=== PATIENT | female | born 1945 | race Caucasian/White ===

== ENCOUNTER 2022-10-23 08:00 | Outpatient (RCR) | payer MEDICARE, OTHER, SELFPAY ==
--- NOTE | 2022-07-25 15:15 | PT.OIE ---
Current Diagnoses Overactive bladder (07/25/22) Visit Care Team Role Provider Type L Raisa Harding MD Attending Provider Non-Staff Family Provider Referring Provider Specialty: Family Practice Address: [address] [place] [address], [id number] Email: Physical Therapy Initial Evaluation PT-OP-A Visit Information Start: 07/25/22 09:00 Freq: Status: Active Protocol: Document 07/25/22 09:01 [facility] (Rec: 07/25/22 09:51 [facility] [id number]) Out-Patient Physical Therapy Visit Information Visit Information Visit Type Initial Evaluation Visit Start Time 09:02 Visit Stop Time 09:45 Total Visit Minutes 43 Visit Number 1 Evaluation Information Evaluation Date 07/25/22 PT-OP-B Current Condition Start: 07/25/22 09:00 Freq: Status: Active Protocol: Document 07/25/22 09:01 [facility] (Rec: 07/25/22 09:51 [facility] [id number]) Current Condition History of Current Condition Onset Date chronic but worsening in the last few years Current Complaints urinary incontinence, urgency, bowel movement urgency, hemorrhoids History of Current Condition hx of surgery for her bladder 40 years ago that helped her pressure and then years later she started feeling symptms of rectal prolapse. She is now on HRT and has been working on kegels but at this point its not helping. Now she has to wear 2 pads and feels that she cant sit through a buddhism service or graduation with out havign to get up to void. When she stands she notes leakage. She has to stop her walk at 15 minutes to go to the bathroom and have a bowelmovement. If the bowels are full she will leak. She is up at 5:30 and she walks right away. She has GERD so she doesn't drink all night, she doesn't drink until after 6 at night SHe has a history of hemmrhoids. Treatment Goals Patient/Caregiver Goals Pt goals include improving pelvic floor strength and reducing symptoms or urinary urgency and frequency as well as improving continence PT-OP-C Subjective Start: 07/25/22 09:00 Freq: Status: Active Protocol: Document 07/25/22 15:05 [facility] (Rec: 07/25/22 15:05 [facility] [id number]) Patient Questionnaires Pelvic Pain and Urgency/Frequency Patient Symptom Scale Pelvic Pain Score 11 PT-OP-I Pelvic Floor Start: 07/25/22 09:00 Freq: Status: Active Protocol: Document 07/25/22 11:08 [facility] (Rec: 07/25/22 11:08 [facility] [id number]) Pelvic Floor Assessment Pelvic Clock Pelvic Clock 12-3 Atrophy Pelvic Clock 3-6 Atrophy Pelvic Clock 6-9 Atrophy Pelvic Clock 9-12 Atrophy Contraction Ability Voluntary Contraction Weak Voluntary Relaxation Weak Manual Muscle Testing Left 2 Manual Muscle Testing Right 2 Manual Muscle Testing Anterior 1 Manual Muscle Testing Posterior 2 Muscle Endurance (Seconds) 3 PT-OP-Q Treatments Start: 07/25/22 09:00 Freq: Status: Active Protocol: Document 07/25/22 11:07 [facility] (Rec: 07/25/22 11:08 [facility] [id number]) Therapeutic Exercises Supine Exercises supine ball squeeze with pelvic floor facilitation Reps/Minutes 10 reps holding 5-10 seconds and resting 10 seconds Comments use ball to help facilitate the anterior pelvic floor PT-OP-T Assessment and Plan Start: 07/25/22 09:00 Freq: Status: Active Protocol: Document 07/25/22 11:08 [facility] (Rec: 07/25/22 11:27 [facility] [id number]) Physical Therapy Assessment Rehab Potential Rehabilitation Potential Excellent Evaluation Complexity Number of Personal Factors/Comorbidities 0 Number of Body Systems Impaired 1-2 Clinical Presentation at Evaluation Stable Impairments Impairments Activity Tolerance,Soft Tissue Mobility,Strength,Tone Other Impairments urinary incontinence both stress and urge Goals 3 Impairment Decreased strength of the pelvic floor specifically the anterior portion of the levator ani with grade 1/5 MMT for the anteior portion of the pelvic floor and 2/5 for all other duffy of the levator ani [employer] Sales Representative Goal (LTG) Pita is able to improve strength of the levator ani by 1 muscle grade or better for improved bladder support LTG Duration 12 weeks 2 Impairment urinary urge and stress incontinence happening 6-10 times per day leaking through Pita's clothing [employer] Sales Representative Goal (LTG) Pita reports a overall reduction of urinary leakage and she is able to reduce the number of leaks from 6-10 per day to 2 or less LTG Duration 12 weeks 1 Impairment decreased endurance of the pelvic floor, pt has limited ability to sustain a pelvic floor contraction for more than a few seconds Short Term Goal (STG) Pita is able to sustain a pelvic floor contraction for 10 seconds in supine STG Duration 5 weeks [employer] Representative Goal (LTG) Pita is able to sustain a pelvic floor contraction for 5 -10 seconds in standing LTG Duration 12 weeks Assessment Summary Assessment Pita is a 77 year old female with symptoms of worsening urinary incontinence 6-10 times per day that often is severe enough she will leak through her clothing. Pita reports she wears maxipads doubled and leaks with both activity as well as strong urge to void. She ofter voids just in case and finds herself voiding frequently throughout the day. She denies nocturia. Pita also reports bowel urgency and notes she will leak if she does not empty her bowels soon enough. Pt notes she stops drinking at 6 oclock at night due to Gerds and finds she is dehydrated upon waking. Patient was given a bladder diary today to begin recording her voiding schedule as well as her fluid intake. She does drink a frappachino as she is walking and this may be contributing to her symptoms. With exam today Pita is weak throughtout her pelvic floor expecially the anterior pelvic floor. She lacks the ability to sustain a pelvic floor contraction and also is unaware when she is lupe her pelvic floor. She will be a good candidate for EMG biofeedback for neuro re-education of the pelvic floor Physical Therapy Plan Frequency and Duration Frequency of Treatment 1x/Week Duration of treatment (weeks) 12 Plan of Care Start Date 07/25/22 Plan of Care End Date 10/10/22 Therapeutic Interventions Therapeutic Interventions Home Exercise Program, Neuromuscular Re-education, Patient/Caregiver Education, Self-Care/Home Management, Therapeutic Exercises Modalities Biofeedback Next Visit Focus/Plan Next Note Type Treatment Note Next Visit Plan Begin EMG biofeedback for endurance training of the pelvic floor
--- NOTE | 2022-07-25 15:15 | PT.OPPOC ---
Physical, Occupational & Speech Therapy At [facility] Current Diagnoses Overactive bladder (07/25/22) Visit Care Team Role Provider Type L Raisa Harding MD Attending Provider Non-Staff Family Provider Referring Provider Specialty: Family Practice Address: [address] [place] [address], [id number] Email: Plan Of Care PT-OP-T Assessment and Plan Start: 07/25/22 09:00 Freq: Status: Active Protocol: Document 07/25/22 11:08 [facility] (Rec: 07/25/22 11:27 [facility] [id number]) Physical Therapy Assessment Rehab Potential Rehabilitation Potential Excellent Evaluation Complexity Number of Personal Factors/Comorbidities 0 Number of Body Systems Impaired 1-2 Clinical Presentation at Evaluation Stable Impairments Impairments Activity Tolerance,Soft Tissue Mobility,Strength,Tone Other Impairments urinary incontinence both stress and urge Goals 3 Impairment Decreased strength of the pelvic floor specifically the anterior portion of the levator ani with grade 1/5 MMT for the anterior portion of the pelvic floor and 2/5 for all other duffy of the levator ani Half-Way Goal (LTG) Pita is able to improve strength of the levator ani by 1 muscle grade or better for improved bladder support LTG Duration 12 weeks 2 Impairment urinary urge and stress incontinence happening 6-10 times per day leaking through Pita's clothing Half-Way Goal (LTG) Pita reports a overall reduction of urinary leakage and she is able to reduce the number of leaks from 6-10 per day to 2 or less LTG Duration 12 weeks 1 Impairment decreased endurance of the pelvic floor, pt has limited ability to sustain a pelvic floor contraction for more than a few seconds Short Term Goal (STG) Pita is able to sustain a pelvic floor contraction for 10 seconds in supine STG Duration 5 weeks Half-Way Goal (LTG) Pita is able to sustain a pelvic floor contraction for 5 -10 seconds in standing LTG Duration 12 weeks Assessment Summary Assessment Pita is a 77 year old female with symptoms of worsening urinary incontinence 6-10 times per day that often is severe enough she will leak through her clothing. Pita reports she wears maxipads doubled and leaks with both activity as well as strong urge to void. She often voids just in case and finds herself voiding frequently throughout the day. She denies nocturia. Pita also reports bowel urgency and notes she will leak if she does not empty her bowels soon enough. Pt notes she stops drinking at 6 o'clock at night due to Gerds and finds she is dehydrated upon waking. Patient was given a bladder diary today to begin recording her voiding schedule as well as her fluid intake. She does drink a frappachino as she is walking and this may be contributing to her symptoms. With exam today Ptia is weak throughout her pelvic floor especially the anterior pelvic floor. She lacks the ability to sustain a pelvic floor contraction and also is unaware when she is lupe her pelvic floor. She will be a good candidate for EMG biofeedback for neuro re-education of the pelvic floor Physical Therapy Plan Frequency and Duration Frequency of Treatment 1x/Week Duration of treatment (weeks) 12 Plan of Care Start Date 07/25/22 Plan of Care End Date 10/10/22 Therapeutic Interventions Therapeutic Interventions Home Exercise Program, Neuromuscular Re-education, Patient/Caregiver Education, Self-Care/Home Management, Therapeutic Exercises Modalities Biofeedback Next Visit Focus/Plan Next Note Type Treatment Note Next Visit Plan Begin EMG biofeedback for endurance training of the pelvic floor Plan of Care Dates Plan of Care Start Date 07/25/22 Plan of Care End Date 10/10/22 Electronically Signed by: Amanda Aguilera, PT 07/25/22 [id number] If you are in agreement with this Plan of Care, please return a signed and dated copy. I have reviewed this Plan of Care and certify that the skilled therapy services above are required to meet the patient?s needs. Physician Signature Date Printed Name and Credentials Clinical Instructor Signature Printed Name and Credentials
--- NOTE | 2022-08-08 09:41 | PT.OTN ---
Current Diagnoses Overactive bladder (08/08/22) Physical Therapy Treatment Note PT-OP-A Visit Information Start: 07/25/22 09:00 Freq: Status: Active Protocol: Document 08/08/22 08:59 [facility] (Rec: 08/08/22 09:41 [facility] [id number]) Out-Patient Physical Therapy Visit Information Visit Information Visit Type Treatment Note Visit Start Time 09:00 Visit Stop Time 09:45 Total Visit Minutes 45 Visit Number 2 PT-OP-B Current Condition Start: 07/25/22 09:00 Freq: Status: Active Protocol: Document 07/25/22 09:01 [facility] (Rec: 07/25/22 09:51 [facility] [id number]) Current Condition History of Current Condition Onset Date chronic but worsening in the last few years Current Complaints urinary incontinence, urgency, bowel movement urgency, hemorrhoids History of Current Condition hx of surgery for her bladder 40 years ago that helped her pressure and then years later she started feeling symptms of rectal prolapse. She is now on HRT and has been working on kegels but at this point its not helping. Now she has to wear 2 pads and feels that she cant sit through a [employer] service or graduation with out havign to get up to void. When she stands she notes leakage. She has to stop her walk at 15 minutes to go to the bathroom and have a bowelmovement. If the bowels are full she will leak. She is up at 5:30 and she walks right away. She has GERD so she doesn't drink all night, she doesn't drink until after 6 at night SHe has a history of hemmrhoids. Treatment Goals Patient/Caregiver Goals Pt goals include improving pelvic floor strength and reducing symptoms or urinary urgency and frequency as well as improving continence PT-OP-C Subjective Start: 07/25/22 09:00 Freq: Status: Active Protocol: Document 08/08/22 08:59 [facility] (Rec: 08/08/22 09:41 [facility] [id number]) OP-PT Subjective Patient Comments Patient Comments pt notes the urge technique has helped for both her bowels as well as her urine PT-OP-I Pelvic Floor Start: 07/25/22 09:00 Freq: Status: Active Protocol: Document 07/25/22 11:08 [facility] (Rec: 07/25/22 11:08 [facility] [id number]) Pelvic Floor Assessment Pelvic Clock Pelvic Clock 12-3 Atrophy Pelvic Clock 3-6 Atrophy Pelvic Clock 6-9 Atrophy Pelvic Clock 9-12 Atrophy Contraction Ability Voluntary Contraction Weak Voluntary Relaxation Weak Manual Muscle Testing Left 2 Manual Muscle Testing Right 2 Manual Muscle Testing Anterior 1 Manual Muscle Testing Posterior 2 Muscle Endurance (Seconds) 3 PT-OP-Q Treatments Start: 07/25/22 09:00 Freq: Status: Active Protocol: Document 08/08/22 08:59 [facility] (Rec: 08/08/22 09:41 [facility] [id number]) Therapeutic Exercises Supine Exercises quick pelvic floor contractions Reps/Minutes x 10 reps Comments 5.4 average and max of 9.0 uv supine pelvic floor isolations Reps/Minutes x 10 reps Comments 5.7 average max of 14.4 supine ball squeeze with pelvic floor facilitation Reps/Minutes 10 reps Comments with EMG biofeedback Self-Care/Home Management Treatment Education Patient Education Home Exercise Program Other Education review of bladder diary and bladder irritants, review of urge deference technique PT-OP-T Assessment and Plan Start: 07/25/22 09:00 Freq: Status: Active Protocol: Document 08/08/22 08:59 [facility] (Rec: 08/08/22 09:41 [facility] [id number]) Physical Therapy Assessment Assessment Summary Assessment Pita was able to isolate her pelvic floor better today and did well with the addition of EMG biofeedback Physical Therapy Plan Frequency and Duration Frequency of Treatment 1x/Week Duration of treatment (weeks) 12 Plan of Care Start Date 07/25/22 Plan of Care End Date 10/10/22 Next Visit Focus/Plan Next Note Type Treatment Note Next Visit Plan continue with EMG biofeedback and add is hip lateral rotation
--- NOTE | 2022-09-04 11:15 | PT.OTN ---
Current Diagnoses Overactive bladder (09/04/22) Physical Therapy Treatment Note PT-OP-A Visit Information Start: 07/25/22 09:00 Freq: Status: Active Protocol: Document 09/04/22 10:32 [facility] (Rec: 09/04/22 11:14 [facility] [id number]) Out-Patient Physical Therapy Visit Information Visit Information Visit Type Treatment Note Visit Start Time 10:32 Visit Stop Time 11:15 Total Visit Minutes 43 Visit Number 3 PT-OP-B Current Condition Start: 07/25/22 09:00 Freq: Status: Active Protocol: Document 07/25/22 09:01 [facility] (Rec: 07/25/22 09:51 [facility] [id number]) Current Condition History of Current Condition Onset Date chronic but worsening in the last few years Current Complaints urinary incontinence, urgency, bowel movement urgency, hemorrhoids History of Current Condition hx of surgery for her bladder 40 years ago that helped her pressure and then years later she started feeling symptms of rectal prolapse. She is now on HRT and has been working on kegels but at this point its not helping. Now she has to wear 2 pads and feels that she cant sit through a [employer] service or graduation with out havign to get up to void. When she stands she notes leakage. She has to stop her walk at 15 minutes to go to the bathroom and have a bowelmovement. If the bowels are full she will leak. She is up at 5:30 and she walks right away. She has GERD so she doesn't drink all night, she doesn't drink until after 6 at night SHe has a history of hemmrhoids. Treatment Goals Patient/Caregiver Goals Pt goals include improving pelvic floor strength and reducing symptoms or urinary urgency and frequency as well as improving continence PT-OP-C Subjective Start: 07/25/22 09:00 Freq: Status: Active Protocol: Document 09/04/22 10:32 [facility] (Rec: 09/04/22 11:14 [facility] [id number]) OP-PT Subjective Patient Comments Patient Comments pt is drinking 14 oz of water before she drinks her coffee. She is doing much better and already can tell a difference. She is better able to make it to the bathroom now. She feels the exercises are helping a lot PT-OP-I Pelvic Floor Start: 07/25/22 09:00 Freq: Status: Active Protocol: Document 07/25/22 11:08 [facility] (Rec: 07/25/22 11:08 [facility] [id number]) Pelvic Floor Assessment Pelvic Clock Pelvic Clock 12-3 Atrophy Pelvic Clock 3-6 Atrophy Pelvic Clock 6-9 Atrophy Pelvic Clock 9-12 Atrophy Contraction Ability Voluntary Contraction Weak Voluntary Relaxation Weak Manual Muscle Testing Left 2 Manual Muscle Testing Right 2 Manual Muscle Testing Anterior 1 Manual Muscle Testing Posterior 2 Muscle Endurance (Seconds) 3 PT-OP-Q Treatments Start: 07/25/22 09:00 Freq: Status: Active Protocol: Document 09/04/22 10:32 [facility] (Rec: 09/04/22 11:14 [facility] [id number]) Therapeutic Exercises Supine Exercises hooklying clamshell with resistance Reps/Minutes 2 x 10 reps Comments level 3 TB quick pelvic floor contractions Reps/Minutes x 10 reps supine pelvic floor isolations Reps/Minutes x 10 reps Comments 7.4 average and max of 10.7 uv supine ball squeeze with pelvic floor facilitation Reps/Minutes 10 reps Comments 8 average and 11.3 max with EMG biofeedback Self-Care/Home Management Treatment Education Other Education time spent on bladder retraining educating on using urge deference technique to increase the time between voids PT-OP-T Assessment and Plan Start: 07/25/22 09:00 Freq: Status: Active Protocol: Document 09/04/22 10:32 [facility] (Rec: 09/04/22 11:14 [facility] [id number]) Physical Therapy Assessment Goals 3 Impairment Decreased strength of the pelvic floor specifically the anterior portion of the levator ani with grade 1/5 MMT for the anteior portion of the pelvic floor and 2/5 for all other duffy of the levator ani [employer] Maker Goal (LTG) Pita is able to improve strength of the levator ani by 1 muscle grade or better for improved bladder support LTG Duration 12 weeks 2 Impairment urinary urge and stress incontinence happening 6-10 times per day leaking through Pita's clothing [employer] Maker Goal (LTG) Pita reports a overall reduction of urinary leakage and she is able to reduce the number of leaks from 6-10 per day to 2 or less LTG Duration 12 weeks 1 Impairment decreased endurance of the pelvic floor, pt has limited ability to sustain a pelvic floor contraction for more than a few seconds Short Term Goal (STG) Pita is able to sustain a pelvic floor contraction for 10 seconds in supine STG Duration 5 weeks [employer] Maker Goal (LTG) Pita is able to sustain a pelvic floor contraction for 5 -10 seconds in standing LTG Duration 12 weeks Assessment Summary Assessment Pita is demonstrating improveing strength and endurance of her pelvic floor on EMG biofeedback. Symptoms are decreasing and urgency is decreasing. Physical Therapy Plan Frequency and Duration Frequency of Treatment 1x/Week Duration of treatment (weeks) 12 Plan of Care Start Date 07/25/22 Plan of Care End Date 10/10/22 Therapeutic Interventions Therapeutic Interventions Home Exercise Program, Neuromuscular Re-education, Patient/Caregiver Education, Self-Care/Home Management, Therapeutic Exercises Modalities Biofeedback Next Visit Focus/Plan Next Note Type Treatment Note Next Visit Plan continue with EMG biofeedback and reviewi hip lateral rotation as well as well as reviewing the extension of time between voids
--- NOTE | 2022-09-18 12:56 | PT.OTN ---
Current Diagnoses Overactive bladder (09/18/22) Physical Therapy Treatment Note PT-OP-A Visit Information Start: 07/25/22 09:00 Freq: Status: Active Protocol: Document 09/18/22 09:32 [facility] (Rec: 09/18/22 10:32 [facility] [id number]) Out-Patient Physical Therapy Visit Information Visit Information Visit Type Treatment Note Visit Start Time 09:32 Visit Stop Time 10:30 Total Visit Minutes 43 Visit Number 4 PT-OP-B Current Condition Start: 07/25/22 09:00 Freq: Status: Active Protocol: Document 07/25/22 09:01 [facility] (Rec: 07/25/22 09:51 [facility] [id number]) Current Condition History of Current Condition Onset Date chronic but worsening in the last few years Current Complaints urinary incontinence, urgency, bowel movement urgency, hemorrhoids History of Current Condition hx of surgery for her bladder 40 years ago that helped her pressure and then years later she started feeling symptms of rectal prolapse. She is now on HRT and has been working on kegels but at this point its not helping. Now she has to wear 2 pads and feels that she cant sit through a [employer] service or graduation with out havign to get up to void. When she stands she notes leakage. She has to stop her walk at 15 minutes to go to the bathroom and have a bowelmovement. If the bowels are full she will leak. She is up at 5:30 and she walks right away. She has GERD so she doesn't drink all night, she doesn't drink until after 6 at night SHe has a history of hemmrhoids. Treatment Goals Patient/Caregiver Goals Pt goals include improving pelvic floor strength and reducing symptoms or urinary urgency and frequency as well as improving continence PT-OP-C Subjective Start: 07/25/22 09:00 Freq: Status: Active Protocol: Document 09/18/22 09:32 [facility] (Rec: 09/18/22 10:32 [facility] [id number]) OP-PT Subjective Patient Comments Patient Comments pt notes she is doing better with delaying the urge to go and is feeling like things are better she is voiding approx every hour PT-OP-I Pelvic Floor Start: 07/25/22 09:00 Freq: Status: Active Protocol: Document 07/25/22 11:08 [facility] (Rec: 07/25/22 11:08 [facility] [id number]) Pelvic Floor Assessment Pelvic Clock Pelvic Clock 12-3 Atrophy Pelvic Clock 3-6 Atrophy Pelvic Clock 6-9 Atrophy Pelvic Clock 9-12 Atrophy Contraction Ability Voluntary Contraction Weak Voluntary Relaxation Weak Manual Muscle Testing Left 2 Manual Muscle Testing Right 2 Manual Muscle Testing Anterior 1 Manual Muscle Testing Posterior 2 Muscle Endurance (Seconds) 3 PT-OP-Q Treatments Start: 07/25/22 09:00 Freq: Status: Active Protocol: Document 09/18/22 09:30 [facility] (Rec: 09/18/22 12:56 [facility] [id number]) Therapeutic Exercises Supine Exercises supine TA with march Reps/Minutes x 10 reps hooklying clamshell with resistance Reps/Minutes 2 x 10 reps Comments level 3 TB quick pelvic floor contractions Reps/Minutes x 10 reps supine pelvic floor isolations Reps/Minutes x 10 reps Comments 7.4 average and max of 10.7 uv Other Exercises side plank Reps/Minutes hold x 10 sec Comments 1 time tried each side plank position Reps/Minutes hold x 10 sec quadruped sidebends Reps/Minutes x 10 reps cat cow Reps/Minutes x 10 quadruped TA Reps/Minutes x 10 PT-OP-T Assessment and Plan Start: 07/25/22 09:00 Freq: Status: Active Protocol: Document 09/18/22 09:30 [facility] (Rec: 09/18/22 12:56 [facility] [id number]) Physical Therapy Assessment Assessment Summary Assessment Pita forgot her pelvic floor sensor today for EMG biofeedback so more time was spent with adding in abdominal strengthening. She asked about planks so they were reviewed. I added in TA in quadruped and supine and she tolerated this well. Physical Therapy Plan Frequency and Duration Frequency of Treatment 1x/Week Duration of treatment (weeks) 12 Plan of Care Start Date 07/25/22 Plan of Care End Date 10/10/22 Therapeutic Interventions Therapeutic Interventions Home Exercise Program, Neuromuscular Re-education, Patient/Caregiver Education, Self-Care/Home Management, Therapeutic Exercises Modalities Biofeedback Next Visit Focus/Plan Next Note Type Treatment Note Next Visit Plan continue with EMG biofeedback next visit for pelvic floor strengthening, review TA stabilization exercises
--- NOTE | 2022-09-25 08:47 | PT.OTN ---
Current Diagnoses Overactive bladder (09/25/22) Physical Therapy Treatment Note PT-OP-A Visit Information Start: 07/25/22 09:00 Freq: Status: Active Protocol: Document 09/25/22 08:00 [facility] (Rec: 09/25/22 08:43 [facility] [id number]) Out-Patient Physical Therapy Visit Information Visit Information Visit Type Treatment Note Visit Start Time 08:00 Visit Stop Time 08:45 Total Visit Minutes 45 Visit Number 5 PT-OP-B Current Condition Start: 07/25/22 09:00 Freq: Status: Active Protocol: Document 07/25/22 09:01 [facility] (Rec: 07/25/22 09:51 [facility] [id number]) Current Condition History of Current Condition Onset Date chronic but worsening in the last few years Current Complaints urinary incontinence, urgency, bowel movement urgency, hemorrhoids History of Current Condition hx of surgery for her bladder 40 years ago that helped her pressure and then years later she started feeling symptms of rectal prolapse. She is now on HRT and has been working on kegels but at this point its not helping. Now she has to wear 2 pads and feels that she cant sit through a [employer] service or graduation with out havign to get up to void. When she stands she notes leakage. She has to stop her walk at 15 minutes to go to the bathroom and have a bowelmovement. If the bowels are full she will leak. She is up at 5:30 and she walks right away. She has GERD so she doesn't drink all night, she doesn't drink until after 6 at night SHe has a history of hemmrhoids. Treatment Goals Patient/Caregiver Goals Pt goals include improving pelvic floor strength and reducing symptoms or urinary urgency and frequency as well as improving continence PT-OP-C Subjective Start: 07/25/22 09:00 Freq: Status: Active Protocol: Document 09/25/22 08:00 [facility] (Rec: 09/25/22 08:43 [facility] [id number]) OP-PT Subjective Patient Comments Patient Comments pt feels like the urgency is a lot better PT-OP-I Pelvic Floor Start: 07/25/22 09:00 Freq: Status: Active Protocol: Document 07/25/22 11:08 [facility] (Rec: 07/25/22 11:08 [facility] [id number]) Pelvic Floor Assessment Pelvic Clock Pelvic Clock 12-3 Atrophy Pelvic Clock 3-6 Atrophy Pelvic Clock 6-9 Atrophy Pelvic Clock 9-12 Atrophy Contraction Ability Voluntary Contraction Weak Voluntary Relaxation Weak Manual Muscle Testing Left 2 Manual Muscle Testing Right 2 Manual Muscle Testing Anterior 1 Manual Muscle Testing Posterior 2 Muscle Endurance (Seconds) 3 PT-OP-Q Treatments Start: 07/25/22 09:00 Freq: Status: Active Protocol: Document 09/25/22 08:00 [facility] (Rec: 09/25/22 08:43 [facility] [id number]) Therapeutic Exercises Supine Exercises templates for eccentric control and coordination Reps/Minutes x 8 min Comments with EMG biofeedback supine TA with march Reps/Minutes x 20 reps supine pelvic floor isolations Reps/Minutes x 10 reps Comments average 5.5 max of 9.0 uv supine ball squeeze with pelvic floor facilitation Reps/Minutes 10 reps Comments average 10 and max of 21 PT-OP-T Assessment and Plan Start: 07/25/22 09:00 Freq: Status: Active Protocol: Document 09/25/22 08:00 [facility] (Rec: 09/25/22 08:43 [facility] [id number]) Physical Therapy Assessment Goals 3 Impairment Decreased strength of the pelvic floor specifically the anterior portion of the levator ani with grade 1/5 MMT for the anteior portion of the pelvic floor and 2/5 for all other duffy of the levator ani Skilled Nursing Goal (LTG) Pita is able to improve strength of the levator ani by 1 muscle grade or better for improved bladder support LTG Duration 12 weeks 2 Impairment urinary urge and stress incontinence happening 6-10 times per day leaking through Pita's clothing Joint Yarner Goal (LTG) Pita reports a overall reduction of urinary leakage and she is able to reduce the number of leaks from 6-10 per day to 2 or less LTG Duration 12 weeks 1 Impairment decreased endurance of the pelvic floor, pt has limited ability to sustain a pelvic floor contraction for more than a few seconds Short Term Goal (STG) Pita is able to sustain a pelvic floor contraction for 10 seconds in supine STG Duration 5 weeks Joint [facility]arner Goal (LTG) Pita is able to sustain a pelvic floor contraction for 5 -10 seconds in standing LTG Duration 12 weeks Assessment Summary Assessment We were able to return to EMG biofeedback today and Pita has shown improvements with both endurance as well as intensity of her contractions Physical Therapy Plan Frequency and Duration Frequency of Treatment 1x/Week Duration of treatment (weeks) 12 Plan of Care Start Date 07/25/22 Plan of Care End Date 10/10/22 Next Visit Focus/Plan Next Note Type Progress Note Next Visit Plan templates for eccentric control and coordination of the pelvic floor next visit, IN to MD next visit
--- NOTE | 2022-10-09 10:55 | PT.OTN ---
Current Diagnoses Overactive bladder (10/09/22) Physical Therapy Treatment Note PT-OP-A Visit Information Start: 07/25/22 09:00 Freq: Status: Active Protocol: Document 10/09/22 09:32 [facility] (Rec: 10/09/22 10:15 [facility] [id number]) Out-Patient Physical Therapy Visit Information Visit Information Visit Type Treatment Note Visit Start Time 09:30 Visit Stop Time 10:15 Total Visit Minutes 45 Visit Number 6 PT-OP-B Current Condition Start: 07/25/22 09:00 Freq: Status: Active Protocol: Document 07/25/22 09:01 [facility] (Rec: 07/25/22 09:51 [facility] [id number]) Current Condition History of Current Condition Onset Date chronic but worsening in the last few years Current Complaints urinary incontinence, urgency, bowel movement urgency, hemorrhoids History of Current Condition hx of surgery for her bladder 40 years ago that helped her pressure and then years later she started feeling symptms of rectal prolapse. She is now on HRT and has been working on kegels but at this point its not helping. Now she has to wear 2 pads and feels that she cant sit through a [employer] service or graduation with out havign to get up to void. When she stands she notes leakage. She has to stop her walk at 15 minutes to go to the bathroom and have a bowelmovement. If the bowels are full she will leak. She is up at 5:30 and she walks right away. She has GERD so she doesn't drink all night, she doesn't drink until after 6 at night SHe has a history of hemmrhoids. Treatment Goals Patient/Caregiver Goals Pt goals include improving pelvic floor strength and reducing symptoms or urinary urgency and frequency as well as improving continence PT-OP-C Subjective Start: 07/25/22 09:00 Freq: Status: Active Protocol: Document 10/09/22 09:32 [facility] (Rec: 10/09/22 10:15 [facility] [id number]) OP-PT Subjective Patient Comments Patient Comments pt feels like she is getting stronger and urgency is getting better overall she is happy with progress Patient Reported Progress Improving PT-OP-I Pelvic Floor Start: 07/25/22 09:00 Freq: Status: Active Protocol: Document 07/25/22 11:08 [facility] (Rec: 07/25/22 11:08 [facility] [id number]) Pelvic Floor Assessment Pelvic Clock Pelvic Clock 12-3 Atrophy Pelvic Clock 3-6 Atrophy Pelvic Clock 6-9 Atrophy Pelvic Clock 9-12 Atrophy Contraction Ability Voluntary Contraction Weak Voluntary Relaxation Weak Manual Muscle Testing Left 2 Manual Muscle Testing Right 2 Manual Muscle Testing Anterior 1 Manual Muscle Testing Posterior 2 Muscle Endurance (Seconds) 3 PT-OP-Q Treatments Start: 07/25/22 09:00 Freq: Status: Active Protocol: Document 10/09/22 09:32 [facility] (Rec: 10/09/22 10:15 [facility] [id number]) Therapeutic Exercises Supine Exercises templates for eccentric control and coordination Reps/Minutes x 8 min Comments with EMG biofeedback supine TA with march Reps/Minutes x 20 reps hooklying clamshell with resistance Reps/Minutes 2 x 10 reps Comments level 3 TB quick pelvic floor contractions Reps/Minutes x 10 reps supine pelvic floor isolations Reps/Minutes x 10 reps Comments 6.0 and 9.2 max supine ball squeeze with pelvic floor facilitation Reps/Minutes 10 reps Comments average 10 and max of 15.9 PT-OP-T Assessment and Plan Start: 07/25/22 09:00 Freq: Status: Active Protocol: Document 10/09/22 09:32 [facility] (Rec: 10/09/22 10:15 [facility] [id number]) Physical Therapy Assessment Goals 3 Impairment Decreased strength of the pelvic floor specifically the anterior portion of the levator ani with grade 1/5 MMT for the anteior portion of the pelvic floor and 2/5 for all other duffy of the levator ani Skilled Nursing Goal (LTG) Pita is able to improve strength of the levator ani by 1 muscle grade or better for improved bladder support excellent progress LTG Duration 12 weeks 2 Impairment urinary urge and stress incontinence happening 6-10 times per day leaking through Pita's clothing Skilled Nursing Goal (LTG) Pita reports a overall reduction of urinary leakage and she is able to reduce the number of leaks from 6-10 per day to 2 or less Pita reports a overall reduction of urinarly leakage at this point and her urgency is also decreased LTG Duration 12 weeks 1 Impairment decreased endurance of the pelvic floor, pt has limited ability to sustain a pelvic floor contraction for more than a few seconds Short Term Goal (STG) Pita is able to sustain a pelvic floor contraction for 10 seconds in supine GOAL MET STG Duration 5 weeks Skilled Nursing Goal (LTG) Pita is able to sustain a pelvic floor contraction for 5 -10 seconds in standing Goal not yet met LTG Duration 12 weeks Progress Towards Goals Progress Towards Goals Progressing Toward Goals Assessment Summary Assessment Pita is progressing well towards her goals. Her pelvic floor strength and endurance and both showing improvement. She reports a overall reduction in urinary leakage as well as decreased urgency and improved time between voids. Pita would benefit from continued PT Physical Therapy Plan Frequency and Duration Frequency of Treatment 1x/Week Duration of treatment (weeks) 8 Plan of Care Start Date 10/09/22 Plan of Care End Date 12/04/22 Therapeutic Interventions Therapeutic Interventions Home Exercise Program, Neuromuscular Re-education, Patient/Caregiver Education, Self-Care/Home Management, Therapeutic Exercises Modalities Biofeedback Next Visit Focus/Plan Next Note Type Treatment Note Next Visit Plan continue working on endurnace training and progressive pelvic floor and core strengthening
--- NOTE | 2022-10-09 10:56 | PT.OPPOC ---
Physical, Occupational & Speech Therapy At [facility] Current Diagnoses Overactive bladder (10/09/22) Visit Care Team Role Provider Type L Raisa Harding MD Attending Provider Non-Staff Family Provider Referring Provider Specialty: Family Practice Address: [address] [place] [address], [id number] Email: Plan Of Care PT-OP-T Assessment and Plan Start: 07/25/22 09:00 Freq: Status: Active Protocol: Document 10/09/22 09:32 [facility] (Rec: 10/09/22 10:15 [facility] [id number]) Physical Therapy Assessment Goals 3 Impairment Decreased strength of the pelvic floor specifically the anterior portion of the levator ani with grade 1/5 MMT for the anterior portion of the pelvic floor and 2/5 for all other duffy of the levator ani Snf Goal (LTG) Pita is able to improve strength of the levator ani by 1 muscle grade or better for improved bladder support excellent progress LTG Duration 12 weeks 2 Impairment urinary urge and stress incontinence happening 6-10 times per day leaking through Pita's clothing Snf Goal (LTG) Pita reports a overall reduction of urinary leakage and she is able to reduce the number of leaks from 6-10 per day to 2 or less Pita reports a overall reduction of urinary leakage at this point and her urgency is also decreased LTG Duration 12 weeks 1 Impairment decreased endurance of the pelvic floor, pt has limited ability to sustain a pelvic floor contraction for more than a few seconds Short Term Goal (STG) Pita is able to sustain a pelvic floor contraction for 10 seconds in supine GOAL MET STG Duration 5 weeks Snf Goal (LTG) Pita is able to sustain a pelvic floor contraction for 5 -10 seconds in standing Goal not yet met LTG Duration 12 weeks Progress Towards Goals Progress Towards Goals Progressing Toward Goals Assessment Summary Assessment Pita is progressing well towards her goals. Her pelvic floor strength and endurance and both showing improvement. She reports a overall reduction in urinary leakage as well as decreased urgency and improved time between voids. Pita would benefit from continued PT Physical Therapy Plan Frequency and Duration Frequency of Treatment 1x/Week Duration of treatment (weeks) 8 Plan of Care Start Date 10/09/22 Plan of Care End Date 12/04/22 Therapeutic Interventions Therapeutic Interventions Home Exercise Program, Neuromuscular Re-education, Patient/Caregiver Education, Self-Care/Home Management, Therapeutic Exercises Modalities Biofeedback Next Visit Focus/Plan Next Note Type Treatment Note Next Visit Plan continue working on endurnace training and progressive pelvic floor and core strengthening Plan of Care Dates Plan of Care Start Date 10/09/22 Plan of Care End Date 12/04/22 Electronically Signed by: Amanda Aguilera, PT 10/09/22 [id number] If you are in agreement with this Plan of Care, please return a signed and dated copy. I have reviewed this Plan of Care and certify that the skilled therapy services above are required to meet the patient?s needs. Physician Signature Date Printed Name and Credentials Clinical Instructor Signature Printed Name and Credentials
--- NOTE | 2022-10-23 13:00 | PT.OTN ---
Current Diagnoses Overactive bladder (10/23/22) Physical Therapy Treatment Note PT-OP-A Visit Information Start: 07/25/22 09:00 Freq: Status: Active Protocol: Document 10/23/22 07:57 [facility] (Rec: 10/23/22 08:49 [facility] [id number]) Out-Patient Physical Therapy Visit Information Visit Information Visit Type Treatment Note Visit Start Time 08:00 Visit Stop Time 08:45 Total Visit Minutes 45 Visit Number 7 PT-OP-B Current Condition Start: 07/25/22 09:00 Freq: Status: Active Protocol: Document 07/25/22 09:01 [facility] (Rec: 07/25/22 09:51 [facility] [id number]) Current Condition History of Current Condition Onset Date chronic but worsening in the last few years Current Complaints urinary incontinence, urgency, bowel movement urgency, hemorrhoids History of Current Condition hx of surgery for her bladder 40 years ago that helped her pressure and then years later she started feeling symptms of rectal prolapse. She is now on HRT and has been working on kegels but at this point its not helping. Now she has to wear 2 pads and feels that she cant sit through a [email or web address] service or graduation with out havign to get up to void. When she stands she notes leakage. She has to stop her walk at 15 minutes to go to the bathroom and have a bowelmovement. If the bowels are full she will leak. She is up at 5:30 and she walks right away. She has GERD so she doesn't drink all night, she doesn't drink until after 6 at night SHe has a history of hemmrhoids. Treatment Goals Patient/Caregiver Goals Pt goals include improving pelvic floor strength and reducing symptoms or urinary urgency and frequency as well as improving continence PT-OP-C Subjective Start: 07/25/22 09:00 Freq: Status: Active Protocol: Document 10/23/22 07:57 [facility] (Rec: 10/23/22 08:49 [facility] [id number]) OP-PT Subjective Patient Comments Patient Comments pt notes she went all the way to [employer] without having to stop. PT-OP-I Pelvic Floor Start: 07/25/22 09:00 Freq: Status: Active Protocol: Document 07/25/22 11:08 [facility] (Rec: 07/25/22 11:08 [facility] [id number]) Pelvic Floor Assessment Pelvic Clock Pelvic Clock 12-3 Atrophy Pelvic Clock 3-6 Atrophy Pelvic Clock 6-9 Atrophy Pelvic Clock 9-12 Atrophy Contraction Ability Voluntary Contraction Weak Voluntary Relaxation Weak Manual Muscle Testing Left 2 Manual Muscle Testing Right 2 Manual Muscle Testing Anterior 1 Manual Muscle Testing Posterior 2 Muscle Endurance (Seconds) 3 PT-OP-Q Treatments Start: 07/25/22 09:00 Freq: Status: Active Protocol: Document 10/23/22 07:57 [facility] (Rec: 10/23/22 08:49 [facility] [id number]) Therapeutic Exercises Supine Exercises templates for eccentric control and coordination Reps/Minutes x 8 min Comments with EMG biofeedback supine TA with march Reps/Minutes x 20 reps hooklying clamshell with resistance Reps/Minutes 2 x 10 reps Comments level 3 TB quick pelvic floor contractions Reps/Minutes x10 reps Comments 6.0 max supine pelvic floor isolations Reps/Minutes x 10 reps Comments 6.2 9.2 max supine ball squeeze with pelvic floor facilitation Comments 11.6 max of 20.6 uv max PT-OP-T Assessment and Plan Start: 07/25/22 09:00 Freq: Status: Active Protocol: Document 10/23/22 07:57 [facility] (Rec: 10/23/22 08:49 [facility] [id number]) Physical Therapy Assessment Goals 3 Impairment Decreased strength of the pelvic floor specifically the anterior portion of the levator ani with grade 1/5 MMT for the anteior portion of the pelvic floor and 2/5 for all other duffy of the levator ani Skilled Nursing Goal (LTG) Pita is able to improve strength of the levator ani by 1 muscle grade or better for improved bladder support excellent progress LTG Duration 12 weeks 2 Impairment urinary urge and stress incontinence happening 6-10 times per day leaking through Pita's clothing Skilled Nursing Goal (LTG) Pita reports a overall reduction of urinary leakage and she is able to reduce the number of leaks from 6-10 per day to 2 or less Pita reports a overall reduction of urinarly leakage at this point and her urgency is also decreased LTG Duration 12 weeks 1 Impairment decreased endurance of the pelvic floor, pt has limited ability to sustain a pelvic floor contraction for more than a few seconds Short Term Goal (STG) Pita is able to sustain a pelvic floor contraction for 10 seconds in supine GOAL MET STG Duration 5 weeks [employer] Goal (LTG) Pita is able to sustain a pelvic floor contraction for 5 -10 seconds in standing pt is now working on standing pelvic floor contractions LTG Duration 12 weeks Assessment Summary Assessment At this time Pita is feeling really good about her home program and she has made really good progress towards her goals. She will be discharged from PT at this time Physical Therapy Plan Discharge Physical Therapy Discharge Reasons Goals Met
== END 2022-10-24 15:09 | disposition home or self-care (01) ==
LOC: PHYS 08:00
PROVIDERS: Family Provider Family Medicine; Referring Provider Family Medicine; Visit Provider Family Medicine
DX: N32.81 Overactive bladder (principal)
CPT/HCPCS: 97110; 97161; 97535